=== PATIENT | male | born 2005 | race Caucasian/White ===

== ENCOUNTER 2023-04-16 14:28 | Outpatient (REF) | payer MEDICAID, SELFPAY | END 2023-04-16 14:29 | disposition home or self-care (01) | LOC: HO.HOSX 14:28 | PROVIDERS: Visit Provider Physical Medicine & Rehabilitation | DX: Z13.89 Encounter for screening for other disorder (principal) ==

== ENCOUNTER 2023-07-12 15:50 | Emergency (ER) | payer BC, SELFPAY ==
--- NOTE | ~2023-07-12 | CT_ITS ---
EXAMINATION: CT ELBOW RT WO IV CONTRAST CLINICAL INFORMATION: Elbow fracture. COMPARISON: Correlation made with x-ray performed the same day. TECHNIQUE: Contiguous axial imaging was performed from the right elbow without intravenous administration of contrast. Sagittal and coronal reformatted images also obtained. This CT examination was performed using dose optimization techniques as appropriate, variously including the following: *Automated exposure control *Adjustment of mA and/or kV according to patient size (this includes techniques or standardized protocols for targeted exams where dose is matched to indication/reason for exam; i.e. extremities or head) *Use of iterative reconstruction technique DLP: 115 mGy-cm FINDINGS: There is dislocation at the elbow. There is a severely comminuted fracture of the lateral epicondyle with numerous fracture fragments measuring 3 mm as large as 2.7 cm. The radial head is intact. The proximal ulna is intact. The medial condyle is intact. There is subcutaneous emphysema along the proximal forearm soft tissues. CT/CT elbow RT wo IV con IMPRESSION: 1. Dislocation at the elbow. 2. Severely comminuted fracture of the lateral epicondyle with numerous fracture fragments measuring 3 mm as large as 2.7 cm.
--- NOTE | ~2023-07-12 | XR_ITS ---
EXAMINATION: XR ELBOW, RIGHT CLINICAL INFORMATION: Right elbow pain, status post fall. COMPARISON: None available. TECHNIQUE: AP, lateral, and oblique views of the right elbow. FINDINGS: Elbow joint is severely disrupted with disruption of the radiocapitellar and ulnar trochlear alignments. Comminuted displaced intra-articular fracture is noted through the lateral distal humeral epicondyle with radial displacement of the dominant lateral epicondyles are fracture fragment which is angulated and oriented laterally. There is medial/ulnar angulation of the distal end of the distal humerus resulting in apparent elbow joint deformity. Likely elbow joint effusion. No definite fracture of the visualized radius and ulna are seen. XR/XR elbow RT min 3V IMPRESSION: Severely comminuted displaced fracture through the right distal humeral lateral epicondyle with complete disruption of the elbow joint alignment and elbow joint deformity.
[2023-07-12 16:03] VITALS: BP 150/86; PULSE 72; RESP 18; TEMP 36.8; O2SAT 98; BMI 22.3
--- NOTE | 2023-07-12 16:04 | ED.UPPEXIN ---
HPI - Extremity Injury (Upper) General Chief Complaint: Extremity Injury, Upper Stated Complaint: R arm inj Time Seen by Provider: 07/12/23 16:55 Source: patient Mode of arrival: ambulatory Limitations: no limitations History of Present Illness HPI narrative: 17-year-old male presents to the emergency department with right elbow pain, patient was doing calisthenics on a pull-up bar, swung forward, fell forward onto his right elbow. Since then has been having pain 10/10, swelling, can not move it due to pain. Patient denies head strike, loss of consciousness. Not on blood thinners. Denies any other injuries sustained during fall. Patient has a video on his phone showing the fall, there was no head strike. Patient immediately started experiencing pain. He was able to get up on his own. Denies chest pain, shortness of breath, nausea, vomiting, headache, vision changes, dizziness and weakness. Related Data Previous Rx's ?Medication ?Instructions ?Recorded acetaminophen 325 mg capsule 325 mg PO Q4H PRN pain #30 caps 07/12/23 (Tylenol) ketorolac 10 mg tablet 10 mg PO TID PRN pain 5 days #15 07/12/23 tabs oxycodone 5 mg tablet 5 mg PO Q8H PRN pain #8 tabs 07/12/23 Allergies Allergy/AdvReac Type Severity Reaction Status Date / Time No Known Allergies Allergy Verified 07/12/23 16:07 Review of Systems Review of Systems: Yes all other systems are reviewed and are negative PMFSH Past Medical History Attestation statement: The following information was validated with the patient. Source: old records reviewed and nursing notes reviewed Social History Social History Smoked in Last 30 Days: No Use of substances other than those prescribed or required for medical reasons: No Advance Directives: No Advance Directives Information Provided: Yes Physical Exam Vital Signs: Vital Signs: Last Vital Signs Temp 98.2 F 07/12/23 16:03 Pulse 72 07/12/23 16:03 Resp 18 07/12/23 16:03 BP 150/86 H 07/12/23 16:03 Pulse Ox 98 07/12/23 16:03 BMI result Body Mass Index 22.3 vss Appearance: Alert.? Oriented X3.? No acute distress.? Head: Normocephalic, atraumatic, no step-offs or deformities Eyes: Pupils equal, round and reactive to light.? Neck: Unremarkable full range of motion painless no step-offs or deformities. CVS: Normal heart rate and rhythm.? Pulses normal.? Respiratory: No respiratory distress.? Breath sounds normal.? Abdomen: Soft and nontender.? Skin: Skin warm and dry.? Normal skin color.? Normal skin turgor.? Extremities: No lower extremity edema.? No calf ttp. 5/5 strength to bilateral upper and lower extremities 2+ radial pulsese equal and b/l, no wrist drop b/l, normal sensation distally b/l, normal cap refil < 2 seconds b/l UE. Tenderness to palpation overlying the right elbow w/ significant swelling overlying olecranon unable to perform range of motion secondary to pain to right elbow. Evident deformity to right elbow. Normal left elbow. Back: No midline tenderness, no C-spine tenderness, full range of motion, no CVA tenderness bilaterally Neuro: Oriented X 3.? No motor deficit.? No sensory deficit. CN 2-12 intact . Ambulating with steady gait normal coordination. Course Course Course Narrative: This is a Rapid Medical Examination (RME) in triage, full HPI, ROS, assessment and plan per primary provider in the Main ED. 17 y/o male presenting with R elbow pain post traumatic fall to right side. He was swinging on a pull up bar and took a flip off and landed on his R elbow. On examination, he is holding his R arm to his chest. On exam, there is a palpable divot between the olecranon and humerus. High suspicion for fracture vs dislocation. Plan: XR Reevaluation(s) Reevaluation #1: X-ray of right elbow severely comminuted displaced fracture through the distal right humeral lateral epicondyle with complete disruption of the elbow joint alignment and elbow joint deformity. Patient with significant pain. There appears to be worsening swelling overlying the elbow. Orthopedics recommended CT scan and stir up splint. Time: 17:42 Reevaluation #2: Sign out to andreas CLIFFORD Medications Administered Discontinued Medications Generic Name Dose Route Start Last Admin Trade Name Freq PRN Reason Stop Dose Admin Acetaminophen 975 mg 07/12/23 16:07 07/12/23 16:09 Acetaminophen 325 Mg Tablet PO 07/12/23 16:08 975 mg ONCE ONE Administration Ibuprofen 600 mg 07/12/23 16:07 07/12/23 16:10 Ibuprofen 600 Mg Tablet PO 07/12/23 16:08 600 mg ONCE ONE Administration Ketorolac Tromethamine 30 mg 07/12/23 17:04 07/12/23 18:50 Ketorolac Tromethamine 30 Mg/Ml Vial IM 07/12/23 17:05 30 mg ONCE ONE Administration Oxycodone HCl 5 mg 07/12/23 18:30 07/12/23 19:19 Oxycodone Hcl Immed Release 5 Mg Tablet PO 07/12/23 18:31 5 mg ONCE ONE Administration Medical Decision Making Medical Decision Making [facility] Narrative: 17-year-old male presents severe right elbow pain status post fall right onto his right elbow. Patient does have a video of this fall, there was no head strike or loss of consciousness. Physical exam significant for No lower extremity edema.? No calf ttp. 5/5 strength to bilateral upper and lower extremities 2+ radial pulsese equal and b/l, no wrist drop b/l, normal sensation distally b/l, normal cap refil < 2 seconds b/l UE. Tenderness to palpation overlying the right elbow unable to perform range of motion secondary to pain to right elbow. Evident deformity to right elbow. Normal left elbow. History and physical exam concerning for fracture/dislocation. Unlikely neurovascular compromise acute threat to limb. No signs of traumatic hemarthrosis at this time however may result from this injury. No signs of compartment syndrome. No signs of traumatic injury to head, neck, chest, abdomen or pelvis. Plan at this time imaging. Posterior long arm and sugar tong splint applied w/ nursing assistance. NV intact and comfortable. CT scan performed and reading is delayed. patient would like to go home. confirmed w/ ortho he is not warranted for admission for surgical intervention at this time; swelling will need to improve. 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 all questions answered Differential Diagnosis Differential Diagnoses: The differential diagnosis associated with the presentation includes History and physical exam concerning for fracture/dislocation. Unlikely neurovascular compromise acute threat to limb. No signs of traumatic hemarthrosis at this time however may result from this injury. No signs of compartment syndrome. No signs of traumatic injury to head, neck, chest, abdomen or pelvis. Admission/Observation Consideration of admission/observation: Escalation of care including admission/observation considered Possible Consult Healthcare Provider Management of the patient was discussed with: Renewals Representative (Orthopedics) Independent Interpretation I performed an independent interpretation of an: Plain X-Ray (XR/XR elbow RT min 3V IMPRESSION: Severely comminuted displaced fracture through the right distal humeral lateral epicondyle with complete disruption of the elbow joint alignment and elbow joint deformity.) Radiology Impression Discussion of test interpretation with radiology: I have reviewed the radiologist's reading. Independent Historian Clinical information obtained from an independent historian. History obtained from or confirmed by: Other (Friends) Prescription Management I considered prescription management with: Pain Medication Procedures Orthopedic Splinting/Casting Injury #1: Side: right Upper Extremity Injury Location: elbow Upper Extremity Immobilizer: sling/shoulder immobilizer, posterior splint and sugar tong splint Critical Care Time Critical Care Time Critical Care Time: Yes Total Critical Care Time: 35 Attestation: I attest to this time spent taking care of the patient, obtaining history, physical, reviewing labs, imaging, speaking to my attending, speaking to specialist. Discharge Plan Discharge Clinical Impression: Fall Qualifiers: Encounter type: initial encounter Qualified Code(s): W19.XXXA - Unspecified fall, initial encounter Elbow fracture, right Qualifiers: Encounter type: initial encounter Fracture type: closed Qualified Code(s): S42.401A - Unspecified fracture of lower end of right humerus, initial encounter for closed fracture Patient Disposition: Home, Self-Care Instructions: Elbow Fracture (ED) Additional Instructions: Take your medications as prescribed. Follow-up with ORTHOPEDICS FOR SURGERY Return to the emergency department with new or worsening symptoms. Such as fevers, chills, chest pain, shortness of breath, nausea, vomiting, dizziness, headache, vision changes, lethargy In case of emergency call 911 Toradol has been sent to your pharmacy, you tolerated this well in the department. Please take this as prescribed do not take this with ibuprofen, or other NSAIDs, do not mix this with alcohol. Side effects of this medication including increased risk for bleeding and possible kidney injury. You can take Tylenol as needed for pain also. Prescriptions: New ketorolac 10 mg tablet 10 mg PO TID PRN (Reason: pain) 5 Days Qty: 15 0RF acetaminophen [Tylenol] 325 mg capsule 325 mg PO Q4H PRN (Reason: pain) Qty: 30 0RF oxycodone 5 mg tablet 5 mg PO Q8H PRN (Reason: pain) Qty: 8 0RF Rx Instructions: Partial Fill upon patient request. [place] [facility] [place] [facility] [place]Provider Group] - 2 days Print Language: Pashto
[2023-07-12] MEDS: Acetaminophen 325 MG TABLET 975 MG PO (16:09)
[2023-07-12] MEDS: Ibuprofen 600 MG TABLET PO (16:10)
--- NOTE | 2023-07-12 18:16 | PC.NURSE ---
attempted to give med- pt in bathroom.
--- NOTE | 2023-07-12 18:30 | PC.NURSE ---
oliver johns placing splint at bedside.
[2023-07-12] MEDS: Ketorolac Tromethamine 30 MG/ML VIAL IM (18:50)
--- NOTE | 2023-07-12 19:15 | PC.NURSE ---
provider remains at bedside with pt splinting. translator and interpreter contininuing to be used
[2023-07-12] MEDS: oxyCODONE HCl Immed Release 5 MG TABLET PO (19:19)
[2023-07-12 20:31] VITALS: BP 154/80; PULSE 104; RESP 18; TEMP 36.3; O2SAT 98
[2023-07-12 20:37] VITALS: BP 154/80; PULSE 104; RESP 18; TEMP 36.3; O2SAT 98
== END 2023-07-12 20:37 | disposition home or self-care (01) ==
PROVIDERS: Emergency Provider Emergency Medicine Emergency Medical Services
DX: S42.401A Unspecified fracture of lower end of right humerus, initial encounter for closed fracture (principal); M25.521 Pain in right elbow; W01.10XA Fall on same level from slipping, tripping and stumbling with subsequent striking against unspecified object, initial encounter; Y93.9 Activity, unspecified; Y92.9 Unspecified place or not applicable; Y99.8 Other external cause status
CPT/HCPCS: 29105; 73080; 73200; 96372; 99284; J1885

== ENCOUNTER 2023-07-14 13:44 | Outpatient (AMB) | payer BC, SELFPAY ==
--- NOTE | 2023-07-14 13:58 | A.OFFVIS_ITS ---
Intake Vital Signs 07/14/23 14:04 Height 6 ft 0.05 in Weight 155 lb BMI 21.0 Handedness Right Intake Visit Reasons: FC - RT elbow fracture/ER Follow up Intake Note: Candelario is a 17 year old right hand dominate male who presents today for a fracture care visit, s/p Rt elbow injury 07/12/23. Patient reports her was doing c alisthenics on a pull up bar when he fell off landing on his right elbow. He reports immediate onset of pain and was seen in the [facility] ED after his injury. He is taking Tylenol which is giving him relief. Accompanied by: cousin Allergies No Known Allergies Allergy (Verified 07/14/23 14:11) HPI FC - RT elbow fracture/ER Follow up HPI Details Candelario is a 17 year old right hand dominate male who presents today for a fracture care visit, s/p Rt elbow injury 07/12/23. Patient reports her was doing calisthenics on a pull up bar when he fell off landing on his right elbow. He reports immediate onset of pain and was seen in the [facility] ED after his injury. He is taking Tylenol which is giving him relief. 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 Physical Exam Vital Signs: BMI result Body Mass Index 21.0 Const General: cooperative, healthy appearing, no acute distress and well groomed Orientation/consciousness: oriented to person and oriented to place HEENT Head: Yes normal to inspection, Yes normocephalic and Yes atraumatic Eyes General: appearance normal, both eyes and all related structures Alignment and Position: alignment normal Conjunctivae: conjunctivae normal EOM: EOMs intact bilaterally Neck Neck: Yes normal visual inspection and Yes trachea midline Resp Other: No rerpiratory distress Effort & Inspection: normal respiratory effort and able to speak in complete sentences Cardio Other: Palpable radial pulse with no appreciable rythmic abnormalities GI Other: No abdominal distension Back/Spine/Pelvis Cervical Spine: normal cervical lordosis and cervical ROM normal Skin General skin exam: no rashes or lesions noted Neuro General: oriented to person, oriented to place and gait normal Extrem Other: Skin clean dry and intact over the right elbow Firing EPL/FDP/interossei Skin intact to light touch right upper extremity Results Reviewed Results Reviewed: I personally reviewed relevant radiographs. This is a severely comminuted fracture of the lateral epicondyle involving the capitellum predominantly. The radial head is intact. Assessment & Plan Assessment & Plan (1) Closed fracture of capitellum of distal humerus: Code(s): S42.453A - Displaced fracture of lateral condyle of unspecified humerus, initial encounter for closed fracture Plan: This is a 17-year-old with a lateral condyle/capitellum fracture. This is a comminuted fracture involving not only the capitellum but the lateral condyle. I recommend open reduction internal fixation. I discussed this with him. I explained the surgery in detail and some of the risks, benefits and alternatives including, but not limited to, the risk of avascular necrosis, infection, stiffness, arthritis, neurovascular injury. He expressed understanding and will proceed forward accordingly. Coding Level of Care Code New Pt Level 4 (97354) Diagnoses Closed fracture of capitellum of distal humerus S42.453A
[2023-07-14 14:04] VITALS: BMI 21.0
== END 2023-07-14 14:48 | disposition home or self-care (01) ==
PROVIDERS: Visit Provider Orthopaedic Surgery
DX: S42.453A Displaced fracture of lateral condyle of unspecified humerus, initial encounter for closed fracture (principal); W17.89XA Other fall from one level to another, initial encounter; Y93.B2 Activity, push-ups, pull-ups, sit-ups
CPT/HCPCS: 99204

== ENCOUNTER → 2023-07-14 13:44 | Outpatient (BNVA) | payer BC, SELFPAY | PROVIDERS: Visit Provider Orthopaedic Surgery ==

== ENCOUNTER 2023-07-17 13:27 | Day surgery (SDC) | payer BC, SELFPAY ==
--- NOTE | 2023-07-16 09:17 | HO.ANESPROP2 ---
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 Allergies Allergy/AdvReac Type Severity Reaction Status Date / Time No Known Allergies Allergy Verified 07/17/23 13:53 Assessment and Plan Assessment Anesthesia Assessment: Chart Reviewed Documented by User: Suri Grider MD 07/17/23 15:21 PMFSH Past Medical History Medical History No pertinent past medical history Family History Family history of problems with anesthesia: No Surgical History Surgical History No pertinent past surgical history History of Problems with Anesthesia: No Social History Social History Alcohol intake: never Patient Tobacco Use Status: Never used Tobacco Use of substances other than those prescribed or required for medical reasons: No Advance Directives: No Advance Directives Information Provided: Yes Current occupational status: employed 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 Allergies Allergy/AdvReac Type Severity Reaction Status Date / Time No Known Allergies Allergy Verified 07/17/23 13:53 Exam Airway Mallampati Class: II TM Dist: >3cm Neck ROM: Full Heart: rrr Lungs: cta Assessment and Plan Final Anesthetic Review Family History of Problems with Anesthesia: No History of Problems with Anesthesia: No NPO: Yes ASA Class: I Final Preanesthetic Review: No Changes in Pt Med Stat, Meds/Allgs Chart Reviewed, Consent Obtained/Reviewed and Anes Risks/Benef Reviewed Patient Risk: Low Procedure Risk: Intermediate Anesthetic Plan Anesthetic Plan: GA and Regional Block Disposition: Standard PACU
[2023-07-17] VITALS (7 sets, daily range): BP systolic 118–155; BP diastolic 67–87; PULSE 94–115; RESP 16–17; TEMP 36.5–37.1; O2SAT 95–100; BMI 20.7
--- NOTE | ~2023-07-17 | FL_ITS ---
EXAMINATION: XR FLUOROSCOPY WITH IMAGES CLINICAL INFORMATION: ORIF right humeral lateral epicondyle fracture. COMPARISON: CT elbow and elbow radiographs dated 07/12/2023. TECHNIQUE: Fluoroscopy Supervised By: Dr. Melchor Jimenes. Fluoroscopy Time: 0.7 minutes. Cumulative Dose: 2.49 mGy. DAP: 0.0433. mGym2. Images: 2. FINDINGS: The submitted images show 4 intact orthopedic screws applied to the fracture of the lateral epicondyle of the distal right humerus. There is improved bony alignment. FL/FL guidance in OR IMPRESSION: Intraoperative fluoroscopic guidance is provided during ORIF of a fracture of the distal right humerus. Please see the patient's Operative Report for full procedural details.
--- NOTE | 2023-07-17 14:15 | PC.NURSE ---
IV inserted by arsh ramirez rn
[2023-07-17] MEDS: Lactated Ringers 1,000 ML 100 ML IVCONT (14:17)
--- NOTE | 2023-07-17 14:50 | PC.NURSE ---
report given to kimmie benítez rn at this time. aware of H&P in draft, need for orders and report.
--- NOTE | 2023-07-17 15:30 | MHC.SHP ---
Pre-Procedural Eval Section A - 24 Hr Update-Section A only Date of Service: 07/17/23 The patient is an INPATIENT: No Changes since office visit: No Cold of Flu in the past 2 weeks, No New Medical Problems, No Changes in Medication and No Patient answered all questions The patient has been examined within 24 hours of the surgical procedure. The History & Physical has been completed within 30 days and I have reviewed it.: Yes Section B - Complete if H&P > 30 days Chief Complaint: Displaced fracture (avulsion) of lateral epicondyl Allergies: Allergies Allergy/AdvReac Type Severity Reaction Status Date / Time No Known Allergies Allergy Verified 07/17/23 13:53 Plan I have reviewed the history and physical and performed a pertinent physical examination on my patient. No changes have occurred unless specified. Time Spent With Patient Time: Total time managing care of this patient today ____ minutes.
--- NOTE | 2023-07-17 19:56 | P.BOP_ITS ---
Brief Operative Note Date of Service: 07/17/23 Pre-op diagnosis: Right elbow fracture Post-op diagnosis: same Procedure: 1) ORIF Capitellum, right 2) ORIF right lateral epidcondyle Implants: [place] headless compression screws x 3 Headed cannulated screw x 1 Surgeon: Melchor Jimenes MD Anesthesia: GLMA and regional Was an Litigation Coordinator used for this Procedure?: No Estimated blood loss (mL): 100 Tourniquet time (min): 120 IV fluids (mL): 1,500 Pathology: none sent Condition: stable
--- NOTE | 2023-07-19 12:29 | P.OP_ITS ---
Operative Note Operative Note Date of Service: 07/17/23 Narrative: Date of Service: 07/17/23 Pre-op diagnosis: Right elbow fracture Post-op diagnosis: same Procedure: 1) ORIF Capitellum, right 2) ORIF right lateral epidcondyle Implants: [place] headless compression screws x 3 Headed cannulated screw x 1 Surgeon: Melchor Jimenes MD Anesthesia: GLMA and regional Was an Production Operations Inspector used for this Procedure?: No Estimated blood loss (mL): 100 Tourniquet time (min): 120 IV fluids (mL): 1,500 Pathology: none sent Condition: stable Procedure in detail: Patient was brought to the operating room and placed supine on the surgical table. He was prepped and draped in standard sterile fashion and a time out was called to identify proper site, proper procedure and IV antibiotics per weight were administered. I began by making a lazy l shaped incision over the lateral epicondyle and extending distally over the radiocapitellar joint. I then dissected down to the lateral epicondyle. Care was take to stay anterior and the comminuted fracture fragments were identified once I was through the fascia. The large capitellar fragment was quickly identified and the capsule carefully dissected off and the anterolateral radiocapitellar joint exposed. This was a fracture dislocation with comminution of the lateral epicondyle and fragments from here displaced into the radiocapitellar and ulnartrochlear articulation. These small , unattached fragments were removed. The radial head was intact with small impaction of the radial edge of the radial head but no fractures or meaningful irregularities. I then mobilized the capitellum. It has sheared off the distal ulna and involved a portion of the trochlea. It was in one large piece however and the bone quality was good. I reduced this with a tenaculum and then small k-wires and placed three headless compression screws through the fragment. two of these were anterior to posterior through the non articulating portion of the lateral capitellum. The third was placed posterior to anterior through the ulnar aspect of the fragment. Care was taken to avoid articular penetration. This was confirmed by direct visualization and with biplanar radiographs. I was satisfied with the stability. The more worrisome problem was the comminution of the lateral epicondyle and the instability. Once I removed the fragments I was able to reduce the remaining large fragment of the lateral epicondyle and used a headed cannulated 3.5 screw to stabilize this fragment. The epicondylar fragment could not hold more than one screw. I was satisfied with the fracture alignment. I then used fiber wire to bring the anteriorly avulsed portion of the lateral epicondyle back to the lateral humerus. There was no bone to anchor this to. The capsule over the radiocapitellar joint was closed with 0 Vicryl. I then took the elbow through full ROM and was satisfied with the range and the stability. The lateral extensor fascia was oversewn with the fascia of the posterior fascia and then the sub q with 2.0 Vicryl and the skin with yumiko. Final radiographs demonstrated anatomic reduction and stable elbow. Patient was placed into sterile dressings and a long posterior splint at 90 deg. Patient was extubated and brought to the recovery room in stable condition. There were no known complications. Follow up in 5-7 days and removal of splint and placement into a hinged elbow brace. Active ROM should be initiated and full extension should be avoid for 2 weeks given dislocation ( block at 30 deg from terminal extension).
== END 2023-07-17 20:55 | disposition home or self-care (01) ==
PROVIDERS: Visit Provider Orthopaedic Surgery
PROC: (CPT 24579; principal; 2023-07-17 15:30)
DX: S42.431A Displaced fracture (avulsion) of lateral epicondyle of right humerus, initial encounter for closed fracture (principal); W17.89XA Other fall from one level to another, initial encounter; Y93.B2 Activity, push-ups, pull-ups, sit-ups; Y92.9 Unspecified place or not applicable; Y99.8 Other external cause status; Z79.899 Other long term (current) drug therapy
CPT/HCPCS: 24579; 24575; C1713; J0131; J0665; J0690; J1100; J2250; J2405; J2704; J3010

== ENCOUNTER → 2023-07-17 13:27 | Outpatient (BNV) | payer BC, SELFPAY | PROVIDERS: Visit Provider Orthopaedic Surgery | DX: S42.491A Other displaced fracture of lower end of right humerus, initial encounter for closed fracture (principal) | CPT/HCPCS: 24579 ==

== ENCOUNTER 2023-07-24 12:41 | Outpatient (REF) | payer BC, SELFPAY ==
--- NOTE | ~2023-07-24 | XR_ITS ---
EXAMINATION: XR ELBOW, RIGHT CLINICAL INFORMATION: Pain in right elbow Out of splint COMPARISON: Right elbow 07/12/2023 TECHNIQUE: AP, lateral, and oblique views of the right elbow. FINDINGS: Multiple screws are seen transfixing the severely comminuted fracture of the lateral epicondyle. Small fracture fragments are seen along the radial aspect of the lateral epicondyle. The radial head is intact. The medial epicondyle is intact alignment is within normal limits. There is a elbow joint effusion. Surgical yumiko are seen along the lateral aspect of the elbow joint. XR/XR elbow RT min 3V IMPRESSION: Status post ORIF comminuted fracture of the lateral epicondyle.
== END 2023-07-24 12:42 | disposition home or self-care (01) ==
LOC: HO.HOSX 12:41
PROVIDERS: Visit Provider Physician Assistant
DX: S42.451A Displaced fracture of lateral condyle of right humerus, initial encounter for closed fracture (principal)
CPT/HCPCS: 73080

== ENCOUNTER 2023-07-24 14:35 | Outpatient (AMB) | payer BC, SELFPAY ==
--- NOTE | 2023-07-24 14:54 | A.OFFVIS_ITS ---
Intake Visit Reasons: PO RT Elbow ORIF 07/17/23 NE Intake Note: right hand dominant Having a lot of pain at night Haivng numbness and tingling on the base of the thumb. Patient has sunificant swelling in the right hand. Allergies No Known Allergies Allergy (Verified 07/24/23 14:56) HPI HPI PO RT Elbow ORIF 07/17/23 NE: Details: 17-year-old male returns to the office today status post right elbow ORIF with Dr. Jimenes on July 16. He is doing well with pain. No concerns. 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 He has normal sensation throughout the forearm and hand with some slight decreased sensation over the dorsal aspect of the thumb. Radial ulnar and nerve sensory and motor function is intact. Pulses present. Results Reviewed Results Reviewed: X-rays of the right elbow obtained in the office today show intact orthopedic hardware. Assessment & Plan Assessment & Plan (1) Closed fracture of capitellum of distal humerus: Code(s): S42.453A - Displaced fracture of lateral condyle of unspecified humerus, initial encounter for closed fracture Category: Medical Plan: [place] will remain intact for another week. His incision was redressed with Xeroform and gauze. He was placed in a [id number] brace which limited his flexion to 90 degrees/neutral and allowed him about 20-30 degrees of extension. He should wear the brace at all times he can remove for hygiene with careful attention to his arm to not fully extend or apply any varus valgus stress. I did put in an order for occupational therapy to work on active range of motion and full extension should be avoided for 2 weeks given the risk of dislocation. Due to the complexity of his fracture and risk for re-injury he will remain out of work at this time. He will see me back in 1 week for staple removal sooner if needed. Orders: Orders OT Evaluation and Treatment Today S42.453A - Displaced fracture of lateral condyle of unspecified humerus, initial encounter for closed fracture
== END 2023-07-24 16:21 | disposition home or self-care (01) ==
PROVIDERS: Visit Provider Physician Assistant
DX: S42.453A Displaced fracture of lateral condyle of unspecified humerus, initial encounter for closed fracture (principal)
CPT/HCPCS: 99024

== ENCOUNTER 2023-07-31 09:52 | Outpatient (REF) | payer BC, SELFPAY ==
--- NOTE | ~2023-07-31 | XR_ITS ---
EXAMINATION: XR ELBOW, RIGHT CLINICAL INFORMATION: Pain in right elbow. COMPARISON: 07/24/2023. TECHNIQUE: AP, lateral, and oblique views of the right elbow. FINDINGS: Redemonstration of postsurgical changes with yumiko, soft tissue swelling and joint effusion status post ORIF comminuted fracture of the lateral epicondyle. Multiple screws redemonstrated transfixing severely comminuted fracture of the lateral epicondyle with multiple fracture fragments along the radial aspect of the lateral epicondyle. Radial head appears intact. Hardware appears intact. XR/XR elbow RT min 3V IMPRESSION: Redemonstration of postsurgical changes status post ORIF comminuted fracture of the lateral epicondyle.
== END 2023-07-31 09:53 | disposition home or self-care (01) ==
LOC: HO.HOSX 09:52
PROVIDERS: Visit Provider Physician Assistant
DX: S42.451D Displaced fracture of lateral condyle of right humerus, subsequent encounter for fracture with routine healing (principal)
CPT/HCPCS: 73080

== ENCOUNTER 2023-07-31 10:54 | Outpatient (AMB) | payer BC, SELFPAY ==
--- NOTE | 2023-07-31 11:00 | A.OFFVIS_ITS ---
Intake Visit Reasons: PO RT Elbow ORIF 07/17/23 NE Intake Note: Candelario a 17 year old male who presents today with his cousin for a post operative right elbow ORIF, DOS 07/17/23 NE. Patient reports he is doing well, states getting use to the elbow brace. Allergies No Known Allergies Allergy (Verified 07/31/23 11:01) HPI HPI PO RT Elbow ORIF 07/17/23 NE: Details: 17-year-old male who returns to the office today for post-op right elbow ORIF, 07/17/[address] Jimenes. He states he has improvement in his pain and is doing well overall. He has been wearing his elbow brace as instructed. He has no concerns today. 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 He has normal sensation throughout the forearm and hand with some slight decreased sensation over the dorsal aspect of the thumb. Radial ulnar and nerve sensory and motor function is intact. Pulses present. Results Reviewed Results Reviewed: X-rays of the right elbow obtained in the office today show intact orthopedic hardware. Assessment & Plan Assessment & Plan (1) Closed fracture of capitellum of distal humerus: Code(s): S42.453A - Displaced fracture of lateral condyle of unspecified humerus, initial encounter for closed fracture Category: Medical Qualifiers: Encounter type: subsequent encounter Laterality: right Fracture healing: with routine healing Qualified Code(s): S42.451D - Displaced fracture of lateral condyle of right humerus, subsequent encounter for fracture with routine healing Plan [place] removed today, steri strips applied. His brace was unlocked to 30 degr ees of extension. He will continue with current work restrictions and see me back in 4 weeks with x-rays, sooner if needed. I did contact OT to try and get him in sooner than 08/11/23 and they will attempt to get him in sooner; however, they are short OT. Orders: Orders XR elbow RT min 3V Today M25.521 - Pain in right elbow Patient Instructions: Scribed for Meghan Sharp PA-C, by Abdirahman Oreilly, medical massage therapist, on 07/31/2023 at 11:00 AM EST. I, Meghan Sharp PA-C, have personally reviewed and agree with the information entered by the scribe. Coding Level of Care Code Global (04377) Diagnoses Closed fracture of capitulum of right humerus with routine healing, subsequent encounter S42.451D Encounter type: subsequent encounter Laterality: right Fracture healing: with routine healing
== END 2023-07-31 12:18 | disposition home or self-care (01) ==
PROVIDERS: Visit Provider Physician Assistant
DX: S42.451D Displaced fracture of lateral condyle of right humerus, subsequent encounter for fracture with routine healing (principal)
CPT/HCPCS: 99024

== ENCOUNTER 2023-08-25 13:47 | Outpatient (AMB) | payer BC, SELFPAY ==
--- NOTE | 2023-08-25 13:55 | A.OFFVIS_ITS ---
Intake Visit Reasons: PO RT Elbow ORIF 07/17/23 NE Intake Note: Candelario a 17 year old male who presents today for a post operative right elbow ORIF, DOS 07/17/23 NE. Xrays updated. Patient reports he is doing well, states intermittent pain in his elbow. He continues to work with PT. Allergies No Known Allergies Allergy (Verified 08/25/23 14:04) HPI HPI PO RT Elbow ORIF 07/17/23 NE: Details: 17-year-old male who returns to the office today for post-op right elbow ORIF, 07/17/[address] Jimenes. He states he has intermittent pain in his elbow however he is doing well otherwise. He continues to work with physical therapy as instructed. He has no other concerns. 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 He has normal sensation throughout the forearm and hand. Radial ulnar and nerve sensory and motor function is intact. ROM 30- 95 . Pulses present. Results Reviewed Results Reviewed: X-rays of the right elbow obtained in the office today show intact orthopedic hardware with callus formation. Assessment & Plan Assessment & Plan (1) Closed fracture of capitellum of distal humerus: Code(s): S42.453A - Displaced fracture of lateral condyle of unspecified humerus, initial encounter for closed fracture Category: Medical Qualifiers: Encounter type: subsequent encounter Fracture healing: with routine healing Laterality: right Qualified Code(s): S42.451D - Displaced fracture of lateral condyle of right humerus, subsequent encounter for fracture with routine healing Plan I discussed the case with Dr. Jimenes and also reviewed images in the office today. Patient will continue working with occupational therapy to attempt in obtaining full ROM of elbow. He will continue to increase activity as tolerated avoiding excess heavy lifting over 5 pounds until I see him back 6 weeks with x- rays, sooner if needed. Orders: Orders XR elbow RT min 3V Today M25.521 - Pain in right elbow Patient Instructions: Scribed for Meghan Sharp PA-C, by Abdirahman Oreilly medical record librarians teacher, on 08/25/2023 at 2:00 PM EST.? I, Meghan Sharp PA-C, have personally reviewed and agree with the information entered by the scribe. Coding Level of Care Code Global (80568) Diagnoses Closed fracture of capitulum of right humerus with routine healing, subsequent encounter S42.451D Encounter type: subsequent encounter Fracture healing: with routine healing Laterality: right
== END 2023-08-25 14:49 | disposition home or self-care (01) ==
PROVIDERS: PCP Registered Nurse; Visit Provider Physician Assistant
DX: S42.451D Displaced fracture of lateral condyle of right humerus, subsequent encounter for fracture with routine healing (principal)
CPT/HCPCS: 99024

== ENCOUNTER 2023-08-25 15:05 | Outpatient (REF) | payer BC, SELFPAY ==
--- NOTE | ~2023-08-25 | XR_ITS ---
EXAMINATION: XR ELBOW, RIGHT CLINICAL INFORMATION: Pain in right elbow. COMPARISON: 07/31/2023, 07/24/2023, 07/12/2023. TECHNIQUE: AP, lateral, and oblique views of the right elbow. FINDINGS: Surgical yumiko have been removed. Redemonstration of postsurgical changes with screws transfixing a severely comminuted fracture of the lateral epicondyle. Redemonstration of multiple fracture fragments along the radial aspect of the lateral epicondyle. Increased ossific fragments adjacent to the medial epicondyle, possibly related to heterotopic ossification, although traumatic etiology should also be considered in the appropriate clinical setting. Persistent joint effusion and soft tissue swelling. XR/XR elbow RT min 3V IMPRESSION: 1. Redemonstration of postsurgical changes with screws transfixing a severely comminuted fracture of the lateral epicondyle. Redemonstration of multiple fracture fragments along the radial aspect of the lateral epicondyle. 2. Increased ossific fragments adjacent to the medial epicondyle, possibly related to heterotopic ossification, although traumatic etiology should also be considered in the appropriate clinical setting.
== END 2023-08-25 15:06 | disposition home or self-care (01) ==
LOC: HO.HOSX 15:05
PROVIDERS: Visit Provider Physician Assistant
DX: M25.521 Pain in right elbow (principal)
CPT/HCPCS: 73080

== ENCOUNTER 2023-09-23 14:30 | Outpatient (RCR) | payer BC, SELFPAY ==
--- NOTE | 2023-08-05 15:36 | MHC.OT.EP ---
[address] [phone] Occupational Therapy Plan of Care Patient Name: Candelario Mata Date of Evaluation: 08/05/23 Diagnosis: Displaced fracture of lateral condyle for right humerus. ORIF 07/17/23 Pain Location: Right elbow . Denies pain Pain Score: 0 Pain Scale Used: Numeric (0 - 10) Aggravating Factors: Alleviating Factors: Assessment: Candelario is a 17 yo male 2 wks ,5 days s/p ORIF for displaced right elbow lateral condyle due to a high impact fall from swinging over a pull up bar during free style exercise. He is now in a hinge brace with a 30 degree extension block. Romi removed 8 days ago. MD instructions to avoid full extension through 08/11/23. Today Candelario presents with a pain free right elbow and impairments in elbow flexion, extension and forearm rotation. He will benefit from OT to progress right UE ROM and functional strength per post op guidelines Frequency and Duration: The patient will be seen 2x wk x 10 wks Short Term Goals: Independent in upper extremity ROM Light use of right hand with ADL/IADL Use of elbow brace with protection with sleeping and moderate IADL tasks Quick DASH score to <30 pts with modifications as needed Elbow extension to < 10 deg Elbow flexion to > 110 deg Boarding House Manager Goals: Demonstrate full elbow AROM Return to ADL and moderate heavy IADL Regain functional strength with activity modification as needed as demonstrated with improved Quick DASH score to less than 20 pts Treatment Plan: Therapeutic Exercise Therapeutic Activity Home Exercise Program Splinting Patient Education ADL Training Ultrasound MHP Soft Tissue Mobilization Electronically Signed By: Shanthi Shepherd OT CHT CLT Please Sign and return to therapist. Thank you once again for your referral.
== END 2023-09-30 16:20 | disposition home or self-care (01) ==
LOC: HO.OT 14:30
PROVIDERS: PCP Registered Nurse; Visit Provider Physician Assistant
DX: S42.453D Displaced fracture of lateral condyle of unspecified humerus, subsequent encounter for fracture with routine healing (principal)
CPT/HCPCS: 97035; 97110; 97140; 97166; 97530

== ENCOUNTER 2023-10-06 13:19 | Outpatient (AMB) | payer BC, SELFPAY ==
--- NOTE | 2023-10-06 13:25 | MHC.OFFVIS ---
Vital Signs 10/06/23 13:26 Height 6 ft Weight 152 lb BMI 20.6 Handedness Right Intake Visit Reasons: PO-6wk f/u PROF RT elbow 07/17/23 NE Intake Note: Candelario is a 18 year old right hand dominant male who presents today post operatively s/p ORIF right lateral epidcondyle 07/17/23 NE. Patient reports he feels okay and is having occasional discomfort with flexion and extension. He is concerned about a bump he feels in the lateral aspect of his elbow. Patient would like to discuss work status today. Allergies No Known Allergies Allergy (Verified 10/06/23 13:29) HPI HPI PO-6wk f/u PROF RT elbow 07/17/23 NE: Details: Candelario is a 18 year old right hand dominant male who presents today post operatively s/p ORIF right lateral epidcondyle 07/17/23 NE. Patient reports he feels okay and is having occasional discomfort with flexion and extension. He is concerned about a bump he feels in the lateral aspect of his elbow. Patient would like to discuss work status today. 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 full supination/pronation no palpable hardware medial epicondyle prominent but non tender well healed incision Assessment & Plan Assessment & Plan (1) Closed fracture of capitellum of distal humerus: Code(s): S42.453A - Displaced fracture of lateral condyle of unspecified humerus, initial encounter for closed fracture Category: Medical Qualifiers: Encounter type: subsequent encounter Laterality: right Fracture healing: with routine healing Qualified Code(s): S42.451D - Displaced fracture of lateral condyle of right humerus, subsequent encounter for fracture with routine healing Plan: 3 months post op doing well Slighlty restricted terminal extension which I explained is expected given severity of injury. He has minimal pain. I think the only way for improvement would be ANNIE but my expectation is that the improvements would be minimal. I explained this to him. He can return to work and see me if he has any additional questions or concerns. Coding Level of Care Code Global (31225) Diagnoses Closed fracture of capitulum of right humerus with routine healing, subsequent encounter S42.451D Encounter type: subsequent encounter Laterality: right Fracture healing: with routine healing
[2023-10-06 13:26] VITALS: BMI 20.6
== END 2023-10-06 13:49 | disposition home or self-care (01) ==
PROVIDERS: PCP Registered Nurse; Visit Provider Orthopaedic Surgery
DX: S42.451D Displaced fracture of lateral condyle of right humerus, subsequent encounter for fracture with routine healing (principal)
CPT/HCPCS: 99024

== ENCOUNTER → 2023-10-06 13:19 | Outpatient (BNVA) | payer BC, SELFPAY | PROVIDERS: PCP Registered Nurse; Visit Provider Orthopaedic Surgery ==